=== PATIENT | male | born 1985 | race Caucasian/White ===

== ENCOUNTER 2020-05-14 18:42 | Inpatient (IN) | payer OTHER ==
[~2020-05-14 18:42] MED LIST: BENADRYL25 MG PO; CERTAGEN1 EACH PO; ERY-TAB250 MG PO; MELATONIN5 M2 PO; PREDNISONE50 MG PO; ZPAK PO
[2020-05-14 19:44] LABS: BASOPHIL 1.1 % (0-2); EOSINOPHIL 7.4 % (0-5); HCT 44.7 % (42.0-52.0); HGB 15.7 g/dl (13.2-18.0); LYMPHOCYTE 29.8 % (15-48); MCH 31.5 pg (25.0-31.0); MCHC 35.1 g/dL (32.0-36.0); MCV 89.6 fL (78.0-100.0); MONOCYTE 7.4 % (0-12); MPV 9.6 fL (6.0-9.5); NEUTROPHIL 54.1 % (41-80); NRBC 0; PLT 246 K/uL (150-400); RBC 4.99 M/uL (4.70-6.00); RDW 12.3 % (11.5-14.0); WBC 8.5 K/uL (4.0-10.5)
[2020-05-14 20:05] LABS: LACTIC ACID 0.5 mmol/L (0.4-1.9)
[2020-05-14 20:08] LABS: ALBUMIN 4.2 g/dL (3.4-5.0); BILIRUBIN - TOTAL 0.4 mg/dL (0.2-1.0); BUN/CREAT RATIO (CALC) 13.5 RATIO; CREATININE 1.11 mg/dL (0.67-1.17); GLOBULIN (CALCULATION) 3.2 g/dL; POTASSIUM 3.4 mmol/L (3.5-5.1); TOTAL PROTEIN 7.4 g/dL (6.4-8.2)
[2020-05-14 20:08] LABS: BILIRUBIN NEGATIVE (NEGATIVE); BLOOD NEGATIVE Ery/uL (NEGATIVE); CLARITY CLEAR (CLEAR); COLOR YELLOW (YELLOW); GLUCOSE (U) NORMAL (NORMAL); LEUKOCYTES NEGATIVE Leu/uL (NEGATIVE); NITRITE NEGATIVE (NEGATIVE); PROTEIN NEGATIVE (NEGATIVE); SPECIFIC GRAVITY 1.015 (1.001-1.030); UROBILINOGEN 0.2 mg/dL (0.2-1.0)
[2020-05-15 06:22] LABS: BASOPHIL 0.1 % (0-2); EOSINOPHIL 0 % (0-5); HCT 41.9 % (42.0-52.0); HGB 14.5 g/dl (13.2-18.0); LYMPHOCYTE 9.4 % (15-48); MCH 31.6 pg (25.0-31.0); MCHC 34.6 g/dL (32.0-36.0); MCV 91.3 fL (78.0-100.0); MONOCYTE 1.1 % (0-12); MPV 9.9 fL (6.0-9.5); NEUTROPHIL 89.1 % (41-80); NRBC 0; PLT 241 K/uL (150-400); RBC 4.59 M/uL (4.70-6.00); RDW 12.5 % (11.5-14.0); WBC 8.7 K/uL (4.0-10.5)
[2020-05-15 06:42] LABS: BUN/CREAT RATIO (CALC) 16.3 RATIO; CREATININE 0.92 mg/dL (0.67-1.17); POTASSIUM 4.3 mmol/L (3.5-5.1)
[2020-05-15] MEDS ORDERED: COMBIVENT RESPIM4 GM INH (13:05)
[2020-05-15] MEDS ORDERED: SINGULAIR10 MG PO (13:05)
[2020-05-15] MEDS ORDERED: ADVAIR HFA 230-28 GM INH (13:05)
[2020-05-15] MEDS ORDERED: PREDNISONE 20MG20 MG PO (13:05)
--- NOTE | 2020-05-16 01:34 | NUR ---
PATIENT'S PULSE OX STOPPED READING OUT AT NURSES STATION. I WENT IN TO REPLACE PATIENT'S PULSE OX AND HE POINTED TO THE HEART MONITOR THAT HE TOOK OFF AND PLACED ON THE BEDSIDE TABLE AND SAID "OH I TOOK IT OFF, I DONT WANT IT ON ANYMORE" AND I CLARIFIED THAT HE WAS REFUSING HIS PULSE OX AND HE CONFIRMED.
[2020-05-16] MEDS ORDERED: SPACE CHAMBER1 EACH INH (09:50)
[2020-05-16] MEDS ORDERED: VENTOLIN HFA IN18 GM INH (09:50)
[2020-05-16] MEDS ORDERED: AZITHROMYCIN 2250 MG PO (09:51)
== END 2020-05-16 10:11 | disposition home or self-care (01) | DRG 189 ==
LOC: FER 18:42 → FMS 05-15 00:42
PROVIDERS: Nurse Practitioner; Nurse Practitioner Family; ADMIT Internal Medicine
DX: J96.01 Acute respiratory failure with hypoxia (principal); J45.901 Unspecified asthma with (acute) exacerbation; F41.9 Anxiety disorder, unspecified; Z20.822 Contact with and (suspected) exposure to COVID-19; F32.9 Major depressive disorder, single episode, unspecified; D72.10 Eosinophilia, unspecified; F12.90 Cannabis use, unspecified, uncomplicated; Z87.891 Personal history of nicotine dependence; Z88.1 Allergy status to other antibiotic agents; Z88.8 Allergy status to other drugs, medicaments and biological substances; Z79.899 Other long term (current) drug therapy
CPT/HCPCS: 36415; 36600; 71046; 71275; 80048; 80053; 81003; 82728; 82803; 83605; 84145; 85025; 85379; 94010; 94640; 94667; 94668; 96372; J0456; J0696; J1650; J2930; J7030; J7050; Q9967; U0002

== ENCOUNTER 2021-07-03 15:16 | Emergency (ER) | payer OTHER ==
[~2021-07-03 15:16] MED LIST changes: +ADVAIR HFA 230-28 GM INH; +AZITHROMYCIN 2250 MG PO; +COMBIVENT RESPIM4 GM INH; +PREDNISONE 20MG20 MG PO; +SINGULAIR10 MG PO; +SPACE CHAMBER1 EACH INH; +VENTOLIN HFA IN18 GM INH
[2021-07-03 16:17] LABS: BASOPHIL 0.7 % (0-2); EOSINOPHIL 4.3 % (0-5); HCT 44.6 % (42.0-52.0); HGB 15.8 g/dl (13.2-18.0); LYMPHOCYTE 28.9 % (15-48); MCH 30.6 pg (25.0-31.0); MCHC 35.4 g/dL (32.0-36.0); MCV 86.3 fL (78.0-100.0); MPV 9.4 fL (6.0-9.5); NEUTROPHIL 59.8 % (41-80); NRBC 0; PLT 260 K/uL (150-400); RBC 5.17 M/uL (4.70-6.00); RDW 12.5 % (11.5-14.0); WBC 9.7 K/uL (4.0-10.5)
[2021-07-03 16:35] LABS: ALBUMIN 4.7 g/dL (3.4-5.0); BILIRUBIN - TOTAL 1.2 mg/dL (0.2-1.0); BUN/CREAT RATIO (CALC) 12.4 RATIO; CREATININE 1.05 mg/dL (0.67-1.17); GLOBULIN (CALCULATION) 2.9 g/dL; POTASSIUM 3.2 mmol/L (3.5-5.1); TOTAL PROTEIN 7.6 g/dL (6.4-8.2)
[2021-07-03 16:58] LABS: CORONAVIRUS 2019 SARS-COV-2 NEGATIVE (NEGATIVE); INFLUENZA A NAA NEGATIVE (NEGATIVE)
[2021-07-03 17:02] LABS: BILIRUBIN NEGATIVE (NEGATIVE); BLOOD NEGATIVE Ery/uL (NEGATIVE); CLARITY CLEAR (CLEAR); COLOR YELLOW (YELLOW); GLUCOSE (U) NORMAL (NORMAL); LEUKOCYTES NEGATIVE Leu/uL (NEGATIVE); NITRITE NEGATIVE (NEGATIVE); PROTEIN NEGATIVE (NEGATIVE); UROBILINOGEN 0.2 mg/dL (0.2-1.0)
[2021-07-03] MEDS ORDERED: VENTOLIN (2.5 MG/3 M INH (19:08)
[2021-07-03] MEDS ORDERED: NEBULIZER UNIT NEB (19:08)
[2021-07-03] MEDS ORDERED: K-TAB ER20 MEQ PO (19:08)
[2021-07-03] MEDS ORDERED: PREDNISONE 20MG20 MG PO (19:08)
== END 2021-07-03 19:20 | disposition home or self-care (01) ==
LOC: FER 15:16
PROVIDERS: Nurse Practitioner Family
DX: J45.901 Unspecified asthma with (acute) exacerbation (principal); E87.6 Hypokalemia; Z20.822 Contact with and (suspected) exposure to COVID-19; Z79.899 Other long term (current) drug therapy; Z88.1 Allergy status to other antibiotic agents; Z87.891 Personal history of nicotine dependence
CPT/HCPCS: 36415; 36600; 71045; 80053; 81003; 82803; 85025; 85379; 93005; 94640; J2930; J7030; U0002

== ENCOUNTER 2021-07-05 19:15 | Emergency (ER) | payer OTHER ==
[~2021-07-05 19:15] MED LIST changes: +K-TAB ER20 MEQ PO; +NEBULIZER UNIT NEB; +VENTOLIN (2.5 MG/3 M INH
[2021-07-05] MEDS ORDERED: ZPAK PO (21:29)
== END 2021-07-05 22:17 | disposition home or self-care (01) ==
LOC: FER 19:15
DX: J45.901 Unspecified asthma with (acute) exacerbation (principal); J06.9 Acute upper respiratory infection, unspecified; F41.9 Anxiety disorder, unspecified; Z88.6 Allergy status to analgesic agent
CPT/HCPCS: 94640; 94664; 99284; J1100